=== PATIENT | male | born 1960 | race Caucasian/White ===

== ENCOUNTER 2018-04-09 07:22 | Inpatient (IN) ==
--- NOTE | 2018-04-09 08:22 | XRay Report ---
SINGLE VIEW CHEST CLINICAL HISTORY: Generalized weakness. FINDINGS: 2 AP, portable, upright chest radiographs are obtained. No prior studies are available for comparison at the time of dictation. The examination is degraded by portable technique and apical marah dotic positioning. The heart is markedly enlarged and there is atherosclerotic calcification of the thoracic aorta. There is mild pulmonary vascular congestion. Bibasilar atelectasis is noted. No airsp stacey consolidation or large pleural effusion is identified. No pneumothorax is seen. The skeletal stru ctures are osteopenic. The bony thorax is grossly intact. IMPRESSION: Marked cardiomegaly with evidence of pulmonary vascular congestion. Electronically signed by: Obi Miles M.D. 04/09/2018 8:21 AM
[2018-04-09 08:39] LABS: Basophils # (auto) 0.02 K/uL (0-0.2); Basophils % (auto) 0.2 %; Eosinophils # (auto) 0.03 K/uL (0-0.5); Eosinophils % (auto) 0.3 %; Hematocrit (blood only) 46.6 % (42-52); Immature Granulocytes # (auto) 0.03 K/uL (0.00-0.02); Immature Granulocytes % (auto) 0.3 %; Lymphocytes # (auto) 1.36 K/uL (1.2-3.4); Lymphocytes % (auto) 11.7 %; Mean Corpuscular Hgb Conc 32.2 g/dL (32-36); Mean Corpuscular Volume 89.3 fL (80-100); Mean Platelet Volume 11.6 fL (7.4-10.4); Monocytes # (auto) 1.12 K/uL (0.11-0.59); Monocytes % (auto) 9.7 %; Neutrophils # (auto) 9.02 K/uL (1.4-6.5); Neutrophils % (auto) 77.8 %; Platelet Count 167 K/uL (130-400); RDW Coefficient of Variation 15.7 % (11.5-14.5); RDW Standard Deviation 50.9 fL (36.4-46.3); Red Blood Count 5.22 M/uL (4.7-6.1); White Blood Count 11.58 K/uL (4.8-10.8)
[2018-04-09 08:50] LABS: Albumin Level 3.2 gm/dl (3.4-5.0); BUN Creatinine Ratio 16.5 (10-20); Blood Urea Nitrogen 17 mg/dl (7-18); Calcium 8.8 mg/dl (8.5-10.1); Carbon Dioxide 27 mmol/L (21-32); Chloride 102 mmol/L (98-107); Est GFR (African American) 90.7; Est GFR (Non-African American) 78.2; Glucose 100 mg/dl (70-99); Magnesium 2.2 mg/dl (1.8-2.4); Potassium 3.7 mmol/L (3.5-5.1); Sodium 139 mmol/L (136-145)
[2018-04-09 09:02] LABS: Alanine Aminotransferase 42 U/L (12-78); Albumin Globulin Ratio 1.1 (0.9-2); Alkaline Phosphatase 126 U/L (45-117); Aspartate Aminotransferase 27 U/L (15-37); Bilirubin,Total 2.6 mg/dl (0.1-1); Globulin 2.8 gm/dl (2.5-4.0); NT Pro B Type Natriuretic Pept 4883 pg/ml (0-900); Troponin I 0.051 ng/ml (0-0.045)
[2018-04-09 09:13] LABS: Appearance Urine Clear (Clear); Bacteria Urine Automated Negative (Negative); Bilirubin Urine Negative (Negative); Cast Urine Automated 0 /lpf (0-5); Color Urine Yellow; Epithelial Cell Urine Auto 0-5 /lpf (0-5); Glucose Urine UA Negative (Negative); Ketones Urine Negative (Negative); Leukocyte Esterase Urine Negative (Negative); Nitrite Urine Negative (Negative); Protein Urine 1+ (Negative); Specific Gravity Urine 1.009 (1.000-1.030); Urobilinogen Urine Negative (Negative); pH Urine 6.5 (4.5-7.5)
--- NOTE | 2018-04-09 09:38 | CT Scan Report ---
CT OF THE ABDOMEN AND PELVIS WITHOUT CONTRAST CLINICAL HISTORY: Abdominal swelling. Lower extremity swelling. Difficulty urinating. COMPARISON STUDY: No previous studies for comparison. TECHNIQUE: Axial images of the abdomen and pelvis were obtained without IV contrast. Images were revi ewed in the axial, sagittal, and coronal planes. Automated exposure control was utilized for the giles dy. A dose lowering technique was utilized adhering to the principles of ALARA. FINDINGS: Moderate to marked cardiomegaly is noted. Trace right pleural effusion is present. There is generalized anasarca. Moderate abdominal and pelvic ascites is noted. Evaluation of the abdomen and pelvis is suboptimal on this unenhanced exam. In addition, artifact is noted from the body wall conta cting the gantry. No pneumatosis, free air or portal venous gas is present. The size of the spleen is normal. No definite collaterals are identified. There is apparent slight nodularity of the liver wit h heterogeneity. Unenhanced images of the adrenal glands, kidneys and pancreas are normal. No hydrone phrosis. There is colonic diverticulosis without evidence for acute diverticulitis. The appendix is n ormal. Lower extremity edema, left greater than right, is noted. There is scrotal edema. Prominent bi lateral inguinal lymph nodes are probably reactive. No suspicious osseous lesion is noted. No renal, ureteral or bladder calculi are present. IMPRESSION: 1. Evidence for volume lobe with anasarca, moderate ascites and trace right pleural effusion. 2. Suboptimal evaluation given lack of contrast and artifact from body wall contacting the gantry. 3. Heterogeneity of the liver and slight nodularity of the liver surface which raises the possibility of cirrhosis. However, normal size spleen with no definite collaterals identified. 4. No bowel obstruction. Colonic diverticulosis without evidence for acute diverticulitis. Normal candelaria endix. Electronically signed by: Jp Matute M.D. 04/09/2018 9:35 AM
[2018-04-09] MEDS ORDERED: FUROSEMIDE 40 MG/4 ML VIAL IV STA (10:38)
[2018-04-09] MEDS ORDERED: NITROGLYCERIN 2% OINTMENT 30GM TUBE EXT STA (10:38)
--- NOTE | 2018-04-09 10:54 | History & Physical Report ---
Date of Service April 09, 2018 Assessment & Plan (1) Acute CHF: 58 y/o M Hx AF, ETOH abuse, medical noncompliance. The pt states that he has had AF for 10 years. He has not seen an MD in this time and has been taking a baby aspirin only. Over the last few months he has developed shortness of breath and progressive edema. He has noted significant scrotal edema as well and has had some difficulty urinating as of late. He is profoundly edematous on arrival to the ER. An EKG confirmed AF while a CXR displayed cardiomegaly and vascular congestion. Inital labs are notable for a marginal troponin and an elevated bilirubin. The pt denies CP, a productive cough, nausea, vomiting, diaphoresis or fevers. 1) CHF - likely owing to persistent AF - Echo is pending - cardio consult requested. Pt will be placed on Lasix BID, Strict I/O, daily weights, low Na diet, fluid restriction. 2) AF - rate is approximately 90 without medications. We will start a low dose of B herber, anticoagulation with Lovenox pending cardio eval. Echo pending. 3) Elevated trop - likely 2/2 CHF - will trend - continue ASA, full dose Lovenox , Echo will evaluate for WMAs. 4) ETOH abuse - denies a history of DTs - placed on PRN Ativan, folate, thiamine. 5) Bilirubin elevation - remainder of LFTs WNL - will eventually need workup - this may be due to passive congestion although we would expect some transaminitis. Will trend LFTs AM 6) Dysuria - owing to scrotal edema - renal function is intact - PRN catheterization while we wait for edema to improve. Full code - Lovenox prophylaxis Total time for this admit including review of labs, meds, imiaging, records - discussion with pt and ER attending - 40 min Present on Admission?: Yes History of Present Illness Chief Complaint: SOB, Anasarca, Scrotal edema, Dysuria Primary Care Provider: NO PCP 58 y/o M Hx AF, ETOH abuse, medical noncompliance. The pt states that he has had AF for 10 years. He has not seen an MD in this time and has been taking a baby aspirin only. Over the last few months he has developed shortness of breath and progressive edema. He has noted significant scrotal edema as well and has had some difficulty urinating as of late. He is profoundly edematous on arrival to the ER. An EKG confirmed AF while a CXR displayed cardiomegaly and vascular congestion. Inital labs are notable for a marginal troponin and an elevated bilirubin. The pt denies CP, a productive cough, nausea, vomiting, diaphoresis or fevers. PMH: Per the pt his PMH is limited to AF and excessive alcohol use Surgical: Denies Social: Quit smoking 10 years ago States he normally drinks several glasses of wine daily. Over the last 2 months he has only had one glass daily due to his condition. He is currently unemployed Family: Father owing to a CVA age 71 Mother due to an MVA Allergies Allergy/AdvReac Type Severity Reaction Status Date / Time No Known Allergies Allergy Unverified 04/09/18 08:10 Home Medications Home Medications Medication Instructions Recorded Confirmed Type ascorbic acid (vitamin C) [Vitamin 250 mg PO QAM 04/09/18 04/09/18 History C] aspirin 81 mg PO QAM 04/09/18 04/09/18 History cholecalciferol (vitamin D3) 5,000 unit PO QAM 04/09/18 04/09/18 History [Vitamin D3] magnesium 500 mg PO QAM 04/09/18 04/09/18 History multivitamin [Multiple Vitamins] 1 tab PO QAM 04/09/18 04/09/18 History omega 3-ufi-apd-fish oil [Fish Oil] 1 cap PO QAM 04/09/18 04/09/18 History vitamin B complex 1 tab PO QAM 04/09/18 04/09/18 History Past Med/Surg History Social History Feels Safe at Home: Yes Smoking Status: Never smoker Review of Systems General: Denies fevers, night sweats, weight loss, weight gain ENT: Denies throat pain, nasal congestion Eyes: Denies acute visual impairment, eye pain Cardiovascular: Denies CP - could not discern palpitations Respiratory: Denies SOB, productive cough, wheezing GI: Denies nausea, vomiting, diarrhea, constipation, GI bleeding : Dysuria related to scrotal edema Neuro: Denies headache, lightheadedness, syncope, unilateral weakness, acute loss of balance, memory loss Endocrine: Denies polydypsia, polyuria Heme: Denies unexplained bruising Skin: Denies acute rash or ulcers Musculoskeletal: Progressive edema extending form abdomen downward Physical Exam 2 Vital Signs (Past 24 Hours): Last Vital Signs Temp 36.8 C 04/09/18 10:33 Pulse 91 H 04/09/18 10:33 Resp 20 04/09/18 10:33 BP 146/106 H 04/09/18 10:33 Pulse Ox 98 04/09/18 10:33 Physical Exam: General: Overweight, midddle-aged male - appears edematous, AAO x 3, no distress - mild dyspnea noted ENT: No erythema or exudates, no thrush Eyes: MARIA LUISA, EOMI Head and neck: Normocephalic, atruamatic - cannot evaluate JVD due to habitus Chest/heart: Nontender, S1,2, irregular Lungs: CTAB, no wheezing or crackles Abdomen: Nontender, edematous - pitting in lower abdomen Neuro: AAO x 3, speech is clear, no unilateral weakness or loss of sensation, coordination intact Musculoskeletal: No joint inflammation, muscle tenderness, FROM - edema extends form abdomen downward : Scrotal edema is present Skin: No acute rashes or ulcers Extremities: 3+ BL edema Results & Data Diagnostic Findings CXR: Marked cardiomegaly with evidence of pulmonary vascular congestion. EKG: AF - no evidence of acute ischemia - rate < 100 _ (1) Acute CHF Heart failure type: unspecified Qualified Code(s): I50.9 - Heart failure, unspecified
[2018-04-09] MEDS ORDERED: ALUMINUM/MAGNESIUM SUSP 30 ML UDC PO PRN (12:38)
[2018-04-09] MEDS ORDERED: ACETAMINOPHEN 325 MG TAB PO PRN (12:38)
[2018-04-09] MEDS ORDERED: NITROGLYCERIN 2% OINTMENT 30GM TUBE EXT SCH (12:38)
[2018-04-09] MEDS ORDERED: MAGNESIUM HYDROXIDE SUSP 30 ML UDC PO PRN (12:38)
[2018-04-09] MEDS ORDERED: LORazepam 1 MG/2 ML VIAL IV PRN (12:38)
[2018-04-09] MEDS ORDERED: ZOLPIDEM TARTRATE 5 MG TAB PO PRN (12:38)
[2018-04-09] MEDS ORDERED: ONDANSETRON INJ 2 MG/ML 2 ML VIAL IV PRN (12:38)
[2018-04-09] MEDS ORDERED: POLYETHYLENE (MIRALAX) 17 GM PACK PO PRN (12:38)
[2018-04-09] MEDS ORDERED: THIAMINE HCL 100 MG TAB PO ONE (12:38)
[2018-04-09] MEDS ORDERED: FOLIC ACID 1 MG TAB PO ONE (12:38)
--- NOTE | 2018-04-09 14:50 | Cardiology Consultation ---
Date of Consultation April 09, 2018 Assessment & Plan (1) Atrial fibrillation: From his history I cannot tell how long he has been in atrial fibrillation , he does have a long history of it going back at least 10 years but I cannot tell if it is permanent or paroxysmal from his description. I also cannot tell if it has been uncontrolled for that long or not, but he is not on medications. I think he should be on at least low doses of rate control medications and he should be on an anticoagulant at this point, rather than aspirin. Currently he is just on aspirin. I do not think we are going to want to do invasive evaluation at this time (certainly not tomorrow, which is right before the weekend and before the [place] holidays) therefore I think we should start him on anticoagulation, I think we can use 1 of the newer agents spite his mildly elevated liver function tests. (2) Cardiomyopathy: Based on his echocardiogram he has significant left ventricular dysfunction although I do not have a measurement at this time. This may be rate related from his atrial fibrillation or he may have some other cause of cardiomyopathy. Based on his electrocardiogram it is probably not ischemic and he does not have symptoms compatible with coronary artery disease. I do not think we need catheterization now, although we may want to do that in the future depending on how he responds to medications. I am going to start him on low-dose beta blockade (carvedilol) which will help with rate control and his cardiomyopathy. (3) Acute CHF: He presents in what he describes is recent onset of congestive heart failure, perhaps a month or 2, although it is conceivable it has been going on for longer than that and then he became aware of it more recently. Since he has not been seeing physicians I do not know that we can become more accurate in the time sequence. The cause of his heart failure is almost certainly left ventricular dysfunction, hopefully from uncontrolled heart rate which may correct. I agree with diuresis. (4) Elevated troponin: His initial troponin was slightly elevated and then it dropped somewhat, I think this is consistent with demand ischemia from congestive heart failure not an ischemic event. Although we may want to consider catheterization in the future for diagnosis of his cardiomyopathy I do not think there is an urgent need for evaluation at this time. History of Present Illness Reason for Consultation: Atrial fibrillation, CHF Attending Physician: Santosh Wilson MD History of Present Illness This is a 58-year-old gentleman with a history of ethanol abuse who has lived in this area for about 5 years, however before that lived in [place] and had seen a court stenographer there for atrial fibrillation and had a cardioversion. I do not have any details and he is not a very clear historian. It sounds as though he had a cardioversion but no other treatment for his arrhythmia other than medications, he discontinued his medications years ago and is not seen a physician for many years. He has been taking aspirin daily. He does not seem very aware of his atrial fibrillation, he tells me that once in a while he thought he might be in it, but he is unclear as to whether he was in it permanently or whether was paroxysmal. Over the last month or so he has noticed a significant increase in his weight as well as leg and abdominal swelling and increasing dyspnea on exertion. He has not been having chest discomfort, he has orthopnea recently. He does not generally have much of an awareness of his heartbeat. Who presented to the emergency room and was noted to be in heart failure and to be in atrial fibrillation with a rapid heart rate. He was therefore admitted. At the time of my evaluation he was resting in bed, he was not having shortness of breath at rest and is not been having chest discomfort or palpitations. Allergies Allergy/AdvReac Type Severity Reaction Status Date / Time No Known Allergies Allergy Unverified 04/09/18 08:10 Home Medications Home Medications Medication Instructions Recorded Confirmed Type ascorbic acid (vitamin C) [Vitamin 250 mg PO QAM 04/09/18 04/09/18 History C] aspirin 81 mg PO QAM 04/09/18 04/09/18 History cholecalciferol (vitamin D3) 5,000 unit PO QAM 04/09/18 04/09/18 History [Vitamin D3] magnesium 500 mg PO QAM 04/09/18 04/09/18 History multivitamin [Multiple Vitamins] 1 tab PO QAM 04/09/18 04/09/18 History omega 4-lek-mdb-fish oil [Fish Oil] 1 cap PO QAM 04/09/18 04/09/18 History vitamin B complex 1 tab PO QAM 04/09/18 04/09/18 History Patient History Social History Current Living Situation: Alone Current Living Situation Comment: [place] Other Information That Helps Us Care for You: No Feels Safe at Home: Yes Safety Concerns: Feels Safe At This Time Smoking Status: Never smoker Hx Alcohol Use: Yes Alcohol type: wine Alcohol Intake Frequency: 3 or more drinks per day Hx Substance Use: No Beliefs That Will Affect Care: None Preferred Language: Polish Communication Ability: Effective 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 Progressive dyspnea on exertion, no exertional chest pain. Recent orthopnea, no PND, recent worsening of peripheral edema. No GI complaints, no bleeding. No neurologic complaints such as TIA or stroke symptoms. Other systems negative. Physical Exam 2 Vital Signs (Past 24 Hours): Last Vital Signs Temp 36.8 C 04/09/18 10:33 Pulse 91 H 04/09/18 10:33 Resp 20 04/09/18 10:33 BP 146/106 H 04/09/18 10:33 Pulse Ox 98 04/09/18 10:33 Physical Exam: Constitutional: Alert, cooperative and in no distress. He is obese. HEENT: Unremarkable other than very poor dentition Neck: No jugular venous distention, carotid pulses are irregular but otherwise unremarkable and equal bilaterally without bruits. Pulmonary: Decreased breath sounds to auscultation bilaterally. Cardiac: Irregular rhythm with no murmur, gallop or rub. Abdomen: Soft, nontender with normal bowel sounds. Extremities: +3 bilateral pretibial edema, extending up to the abdomen. Distal pulses difficult to feel. Neurologic: No focal findings. Gait is steady. Skin: No rash, ecchymoses or petechiae. Results & Data Diagnostic Findings Telemetry: Atrial fibrillation with a relatively well-controlled heart rate averaging a little less than 100 but at times faster Electrocardiogram: Atrial fibrillation at a rate of 97 bpm, 1 PVC, no acute changes Echocardiogram severe left ventricular dysfunction, formal report pending _ (1) Acute CHF Heart failure type: unspecified Qualified Code(s): I50.9 - Heart failure, unspecified
--- NOTE | 2018-04-09 16:06 | Emergency Department Note ---
Entered by Kalyn Fraser acting as a scribe for Jovany Aj MD ED Provider Note CHIEF COMPLAINT: Scrotal swelling HISTORY OF PRESENT ILLNESS: The patient is a 58 year old male who presents to the Emergency Room with complaints of persistent scrotal swelling beginning 4 days ago. He reports his scrotum is red and has increased warmth, but is not painful. The patient states he has not been able to fully urinate for weeks, and reports he urinates "trickles" of dark yellow urine multiple times throughout the day. He denies blood or pain with urination. The patient reports dyspnea on exertion, and states he is unable to cross a room without stopping to take a breath. He notes these symptoms began around 2 months ago, when he began retaining fluid. The patient reports he has had abdominal and bilateral lower extremity swelling over the past couple months. He notes constipation, lack of appetite, and intermittent itchiness. The patient denies racing heart rate, chest pain, palpitations, fevers, chills, sweats, orthopnea, nocturnal dyspnea, headache, rash, LOC, numbness, tingling, weakness, or blood in his stools. He notes a history of Afib, and he is not currently on blood thinners. REVIEW OF SYSTEMS: See HPI for pertinent positives and negatives. A total of ten systems were reviewed and were otherwise negative. PMHx/PSHx: Afib. Hx cardioversion (~2007). SOCIAL HISTORY: Patient lives at home. PHYSICAL EXAM: GENERAL: Awake, alert, mildly uncomfortable-appearing, in no distress HENT: Normocephalic, atraumatic. Oropharynx unremarkable. EYES: Normal conjunctiva. Sclera non-icteric. NECK: Inspection normal. Non-tender. Supple. No nuchal rigidity. FROM. No masses. RESPIRATORY: Clear to auscultation. No wheezes. No rales. Normal respiratory effort. CARDIAC: Tachycardic rate. Irregular rhythm. No murmurs. No rubs. Extremities warm and well perfused. Pulses equal. No JVD. GI: Significantly distended. No tenderness to palpation. No rebound or guarding. No masses. RECTAL: Deferred. MUSCULOSKELETAL: Atraumatic. Chest examination reveals no tenderness. The back is symmetrical on inspection without obvious abnormality. There is no CVA tenderness to palpation. LOWER EXTREMITIES: Calves are equal size bilaterally and non-tender. No discoloration. NEURO: Normal sensorium. No sensory or motor deficits noted. SKIN: No rash or jaundice noted. 3+ pitting edema in lower extremities, scrotum , penis, and abdomen. EMERGENCY DEPARTMENT COURSE: 0743: Past medical records reviewed. The patient was evaluated in room A10 by Marty Palacio, the medical student under my direction. 0815: I evaluated the patient in room A10, and a complete history and physical examination were performed. 1045: I reviewed the patient's case with Dr. Wilson, [facility] hospitalist. He will evaluate the patient for further management. MEDICAL DECISION MAKING: Triage Nursing notes reviewed and agree them. The patient's history was concerning for swelling in the abdomen, groin, and legs Differential diagnosis: Etiologies such as CHF, DVT, joint effusion, infection, trauma, muscular, lymphedema, idiopathic,, as well as others were entertained. Physical examination: The physical examination revealed no signs of infection. Neurovascularly intact. The patient had anasarca. ER treatment provided: IV Lasix Nitropaste On reassessment the patient felt better. Diagnostics interpreted by me: The labs revealed an unremarkable CBC and chemistry panel. No sign of renal failure. The patient has a mildly elevated troponin. His BNP is also elevated concerning for CHF. Imaging studies: Chest x-ray concerning for CHF. CT scan of the abdomen pelvis revealed anasarca. Consultation: A consultation was placed with the hospitalist. The case was discussed and diagnostics were reviewed. The patient was evaluated in the ER for further treatment. IMPRESSION: Acute CHF, anasarca, elevated troponin. PLAN: Admitted The scribe's documentation has been prepared under my direction and personally reviewed by me in its entirety. I confirm that the note above accurately reflects all work, treatment, procedures, and medical decision making performed by me. Impression & Plan Acute CHF, Anasarca, Elevated troponin Past Med/Surg History Social History Current Living Situation: Alone Current Living Situation Comment: [facility] [place] [employer] Other Information That Helps Us Care for You: No Feels Safe at Home: Yes Safety Concerns: Feels Safe At This Time Smoking Status: Never smoker Hx Alcohol Use: Yes Alcohol type: wine Alcohol Intake Frequency: 3 or more drinks per day Hx Substance Use: No Beliefs That Will Affect Care: None Preferred Language: Serbian Communication Ability: Effective Marketing Program Coordinator Required: No Results & Data Vital Signs Vital Signs - 24 hr 04/09/18 07:32 04/09/18 08:16 04/09/18 10:33 Temperature 36.4 C L 36.8 C Temperature Source Oral Oral Sepsis Recent Fever Within 48 Hours No Sepsis New/Unexplained Change in Mental Status No Sepsis Action Taken by Nursing No Action Required Pulse Rate 110 H Pulse Rate [Left] 91 H Pulse Rhythm [Left] Regular Pulse Strength [Left] Normal Respiratory Rate 28 H 20 Respiratory Effort / Characteristics Non-Labored Respiratory Depth Normal Respiratory Pattern Regular Blood Pressure 137/86 Blood Pressure [Left Arm] 146/106 H Blood Pressure Mean 103 Blood Pressure Mean [Left Arm] 119 Blood Pressure Position [Left Arm] Lying Pulse Oximetry 98 95 98 Oxygen Delivery Method Room Air Room Air 04/09/18 11:39 04/09/18 15:28 Temperature 36.4 C L Temperature Source Oral Sepsis Recent Fever Within 48 Hours Sepsis New/Unexplained Change in Mental Status Sepsis Action Taken by Nursing Pulse Rate Pulse Rate [Left] 88 Pulse Rhythm [Left] Pulse Strength [Left] Respiratory Rate 18 Respiratory Effort / Characteristics SOB on Exertion Respiratory Depth Respiratory Pattern Regular Blood Pressure Blood Pressure [Left Arm] 150/102 H Blood Pressure Mean Blood Pressure Mean [Left Arm] 118 Blood Pressure Position [Left Arm] Lying Pulse Oximetry 98 Oxygen Delivery Method Room Air Home Medications Current Medication List: was personally reviewed by me Laboratory Data Attestation: I reviewed the patient's lab results. Result diagrams: 04/09/18 08:26 04/09/18 08:26 Lab Results 04/09/18 04/09/18 04/09/18 Range/Units 08:26 08:26 09:00 WBC 11.58 H (4.8-10.8) K/uL RBC 5.22 (4.7-6.1) M/uL Hgb 15.0 (14.0-18.0) g/dL Hct 46.6 (42-52) % MCV 89.3 (80-100) fL MCH 28.7 (25-34) pg MCHC 32.2 (32-36) g/dL RDW Std Deviation 50.9 H (36.4-46.3) fL RDW Coeff of Reji 15.7 H (11.5-14.5) % Plt Count 167 (130-400) K/uL MPV 11.6 H (7.4-10.4) fL Immature Gran % (Auto) 0.3 % Neut % (Auto) 77.8 % Lymph % (Auto) 11.7 % [place] % (Auto) 9.7 % Eos % (Auto) 0.3 % Baso % (Auto) 0.2 % Immature Gran # (Auto) 0.03 H (0.00-0.02) K/uL Neut # (Auto) 9.02 H (1.4-6.5) K/uL Lymph # (Auto) 1.36 (1.2-3.4) K/uL [place] # (Auto) 1.12 H (0.11-0.59) K/uL Eos # (Auto) 0.03 (0-0.5) K/uL Baso # (Auto) 0.02 (0-0.2) K/uL Sodium 139 (136-145) mmol/L Potassium 3.7 (3.5-5.1) mmol/L Chloride 102 (98-107) mmol/L Carbon Dioxide 27 (21-32) mmol/L Anion Gap 10.0 (3-11) BUN 17 (7-18) mg/dl Creatinine 1.04 (0.6-1.4) mg/dl Est Cr Clr Drug Dosing Not Reportable Est GFR ( Amer) 90.7 Est GFR (Non-Af Amer) 78.2 BUN/Creatinine Ratio 16.5 (10-20) Glucose 100 H (70-99) mg/dl Calcium 8.8 (8.5-10.1) mg/dl Magnesium 2.2 (1.8-2.4) mg/dl Total Bilirubin 2.6 H (0.1-1) mg/dl AST 27 (15-37) U/L ALT 42 (12-78) U/L Alkaline Phosphatase 126 H (45-117) U/L Troponin I 0.051 H* (0-0.045) ng/ml NT-Pro-B Natriuret Pep 4883 H (0-900) pg/ml Total Protein 6.0 L (6.4-8.2) gm/dl Albumin 3.2 L (3.4-5.0) gm/dl Globulin 2.8 (2.5-4.0) gm/dl Albumin/Globulin Ratio 1.1 (0.9-2) Folate (>5.38) ng/ml TSH 1.900 (0.300-4.500) uIu/ml Urine Color Yellow Urine Appearance Clear (Clear) Urine pH 6.5 (4.5-7.5) Ur Specific [place] 1.009 (1.000-1.030) Urine Protein 1+ H (Negative) Urine Glucose (UA) Negative (Negative) Urine Ketones Negative (Negative) Urine Blood Negative (Negative) Urine Nitrite Negative (Negative) Urine Bilirubin Negative (Negative) Urine Urobilinogen Negative (Negative) Ur Leukocyte Esterase Negative (Negative) Urine WBC (Auto) 1-5 (0-5) /hpf Urine RBC (Auto) 0-4 (0-4) /hpf U Hyaline Cast (Auto) 0 (0-5) /lpf U Epithel Cells (Auto) 0-5 (0-5) /lpf Urine Bacteria (Auto) Negative (Negative) 04/09/18 04/09/18 Range/Units 13:55 13:55 WBC (4.8-10.8) K/uL RBC (4.7-6.1) M/uL Hgb (14.0-18.0) g/dL Hct (42-52) % MCV (80-100) fL MCH (25-34) pg MCHC (32-36) g/dL RDW Std Deviation (36.4-46.3) fL RDW Coeff of Reji (11.5-14.5) % Plt Count (130-400) K/uL MPV (7.4-10.4) fL Immature Gran % (Auto) % Neut % (Auto) % Lymph % (Auto) % [place] % (Auto) % Eos % (Auto) % Baso % (Auto) % Immature Gran # (Auto) (0.00-0.02) K/uL Neut # (Auto) (1.4-6.5) K/uL Lymph # (Auto) (1.2-3.4) K/uL [place] # (Auto) (0.11-0.59) K/uL Eos # (Auto) (0-0.5) K/uL Baso # (Auto) (0-0.2) K/uL Sodium (136-145) mmol/L Potassium (3.5-5.1) mmol/L Chloride (98-107) mmol/L Carbon Dioxide (21-32) mmol/L Anion Gap (3-11) BUN (7-18) mg/dl Creatinine (0.6-1.4) mg/dl Est Cr Clr Drug Dosing Est GFR ( Amer) Est GFR (Non-Af Amer) BUN/Creatinine Ratio (10-20) Glucose (70-99) mg/dl Calcium (8.5-10.1) mg/dl Magnesium (1.8-2.4) mg/dl Total Bilirubin (0.1-1) mg/dl AST (15-37) U/L ALT (12-78) U/L Alkaline Phosphatase (45-117) U/L Troponin I 0.043 (0-0.045) ng/ml NT-Pro-B Natriuret Pep (0-900) pg/ml Total Protein (6.4-8.2) gm/dl Albumin (3.4-5.0) gm/dl Globulin (2.5-4.0) gm/dl Albumin/Globulin Ratio (0.9-2) Folate 20.52 (>5.38) ng/ml TSH (0.300-4.500) uIu/ml Urine Color Urine Appearance (Clear) Urine pH (4.5-7.5) Ur Specific [place] (1.000-1.030) Urine Protein (Negative) Urine Glucose (UA) (Negative) Urine Ketones (Negative) Urine Blood (Negative) Urine Nitrite (Negative) Urine Bilirubin (Negative) Urine Urobilinogen (Negative) Ur Leukocyte Esterase (Negative) Urine WBC (Auto) (0-5) /hpf Urine RBC (Auto) (0-4) /hpf U Hyaline Cast (Auto) (0-5) /lpf U Epithel Cells (Auto) (0-5) /lpf Urine Bacteria (Auto) (Negative) Administered Medications Discontinued Medications Folic Acid (Folvite) 1 mg PO ONCE ONE Stop: 04/09/18 12:39 Last Admin: 04/09/18 13:14 Dose: 1 mg Furosemide (Lasix) 20 mg IV NOW STA Stop: 04/09/18 10:39 Last Admin: 04/09/18 11:04 Dose: 20 mg Nitroglycerin (Nitro-Bid 2%) 0.5 inch EXT NOW STA Stop: 04/09/18 10:39 Last Admin: 04/09/18 11:05 Dose: 0.5 inch Thiamine HCl (Vitamin B-1) 100 mg PO ONCE ONE Stop: 04/09/18 12:39 Last Admin: 04/09/18 13:14 Dose: 100 mg Imaging Data Radiologist's Impression: Radiology results as stated below per my review and the radiologist's interpretation: CT OF THE ABDOMEN AND PELVIS WITHOUT CONTRAST CLINICAL HISTORY: Abdominal swelling. Lower extremity swelling. Difficulty urinating. COMPARISON STUDY: No previous studies for comparison. TECHNIQUE: Axial images of the abdomen and pelvis were obtained without IV contrast. Images were reviewed in the axial, sagittal, and coronal planes. Automated exposure control was utilized for the study. A dose lowering technique was utilized adhering to the principles of ALARA. FINDINGS: Moderate to marked cardiomegaly is noted. Trace right pleural effusion is present. There is generalized anasarca. Moderate abdominal and pelvic ascites is noted. Evaluation of the abdomen and pelvis is suboptimal on this unenhanced exam. In addition, artifact is noted from the body wall contacting the gantry. No pneumatosis, free air or portal venous gas is present. The size of the spleen is normal. No definite collaterals are identified. There is apparent slight nodularity of the liver with heterogeneity. Unenhanced images of the adrenal glands, kidneys and pancreas are normal. No hydronephrosis. There is colonic diverticulosis without evidence for acute diverticulitis. The appendix is normal. Lower extremity edema, left greater than right, is noted. There is scrotal edema. Prominent bilateral inguinal lymph nodes are probably reactive. No suspicious osseous lesion is noted. No renal, ureteral or bladder calculi are present. IMPRESSION: 1. Evidence for volume lobe with anasarca, moderate ascites and trace right pleural effusion. 2. Suboptimal evaluation given lack of contrast and artifact from body wall contacting the gantry. 3. Heterogeneity of the liver and slight nodularity of the liver surface which raises the possibility of cirrhosis. However, normal size spleen with no definite collaterals identified. 4. No bowel obstruction. Colonic diverticulosis without evidence for acute diverticulitis. Normal appendix. Electronically signed by: Jp Matute M.D. 04/09/2018 9:35 AM SINGLE VIEW CHEST CLINICAL HISTORY: Generalized weakness. FINDINGS: 2 AP, portable, upright chest radiographs are obtained. No prior studies are available for comparison at the time of dictation. The examination is degraded by portable technique and apical lordotic positioning. The heart is markedly enlarged and there is atherosclerotic calcification of the thoracic aorta. There is mild pulmonary vascular congestion. Bibasilar atelectasis is noted. No airspace consolidation or large pleural effusion is identified. No pneumothorax is seen. The skeletal structures are osteopenic. The bony thorax is grossly intact. IMPRESSION: Marked cardiomegaly with evidence of pulmonary vascular congestion. Electronically signed by: Obi Miles M.D. 04/09/2018 8:21 AM ECG Data Attestation: I personally reviewed and interpreted this ECG as follows: Indication: SOB/dyspnea Rate (beats per minute): 97 Rhythm: atrial fibrillation Findings: + other (nonspecific intraventricular conduction delay ), + nonspecific-ST abn and + PVC; no ST elevation Blood Pressure Blood Pressure Findings: Elevated blood pressure Blood Pressure Disposition: further management by hospitalist Discharge Plan Visit Data *Final* Discharge Date/Time: 04/09/18 12:20 Chief Complaint: Swelling/Edema to Extremity Stated Complaint: SWELLING FEET, ABD, NO BOWEL MOVEMENT ED Provider: Jovany Aj Discharge Problem: Acute CHF, Anasarca, Elevated troponin Patient Disposition: Admitted As Inpatient Discharge Instructions Interventions: ED Discharge Assessment Last Done: 04/09/18 12:20 The scribe's documentation has been prepared under my direction and personally reviewed by me in its entirety. I confirm that the note above accurately reflects all work, treatment, procedures, and medical decision making performed by me.
[2018-04-09] MEDS ORDERED: Heparin IV Standard *NO* Bolus SCH (19:00)
[2018-04-09] MEDS ORDERED: HEPARIN STANDARD DEXTROSE 25,000 UNITS/500 ML IV SCH (19:25)
[2018-04-09] MEDS: APIXABAN 5 MG TABLET PO SCH (20:26)
[2018-04-09] MEDS: CARVEDILOL 3.125 MG TAB PO SCH (20:26)
[2018-04-10 06:31] LABS: Basophils # (auto) 0.03 K/uL (0-0.2); Basophils % (auto) 0.3 %; Eosinophils # (auto) 0.23 K/uL (0-0.5); Eosinophils % (auto) 2.3 %; Hematocrit (blood only) 46.8 % (42-52); Hemoglobin 14.8 g/dL (14.0-18.0); Immature Granulocytes # (auto) 0.02 K/uL (0.00-0.02); Immature Granulocytes % (auto) 0.2 %; Lymphocytes # (auto) 1.77 K/uL (1.2-3.4); Lymphocytes % (auto) 17.7 %; Mean Corpuscular Hgb Conc 31.6 g/dL (32-36); Mean Corpuscular Volume 89.1 fL (80-100); Mean Platelet Volume 11.2 fL (7.4-10.4); Monocytes # (auto) 1.02 K/uL (0.11-0.59); Monocytes % (auto) 10.2 %; Neutrophils # (auto) 6.93 K/uL (1.4-6.5); Neutrophils % (auto) 69.3 %; Platelet Count 179 K/uL (130-400); RDW Coefficient of Variation 15.9 % (11.5-14.5); RDW Standard Deviation 51.5 fL (36.4-46.3); Red Blood Count 5.25 M/uL (4.7-6.1)
[2018-04-10 06:58] LABS: Potassium 3.5 mmol/L (3.5-5.1)
[2018-04-10 06:59] LABS: Albumin Level 3.2 gm/dl (3.4-5.0); BUN Creatinine Ratio 14.6 (10-20); Calcium 8.9 mg/dl (8.5-10.1); Creatinine Clr Calc Pharmacy 104.6 ml/min; Est GFR (African American) 80.3; Est GFR (Non-African American) 69.3; Magnesium 2.2 mg/dl (1.8-2.4)
[2018-04-10 07:02] LABS: Bilirubin,Total 2.6 mg/dl (0.1-1); Total Protein 6.2 gm/dl (6.4-8.2)
[2018-04-10] MEDS: CARVEDILOL 3.125 MG TAB PO SCH (07:43)
[2018-04-10] MEDS: MAGNESIUM OXIDE 400 MG TAB PO SCH (07:43)
[2018-04-10] MEDS: APIXABAN 5 MG TABLET PO SCH ×2 (07:43→20:30)
--- NOTE | 2018-04-10 07:52 | Hospitalist Progress Note ---
Date of Service April 10, 2018 Assessment & Plan (1) Acute CHF: 58 y/o M Hx AF, ETOH abuse, medical noncompliance. The pt states that he has had AF for 10 years. Had been cardioverted in the distant past for afib but is didnt stay according to him. He has significant scrotal edema as well as penile edema. 1) acute diastolic CHF - likely owing to persistent AF - Echo also shows systolic dysfunction- cardio consult recommends rate control increased diuresis and starting anticoagulation, Strict I/O, daily weights, low Na diet, fluid restriction. 2) AF -B herber, but did have some pauses, cardiology is slowly increasing dose 3) Elevated trop - likely supply demand mismatch- continue ASA, 4) ETOH abuse - denies a history of DTs - placed on PRN Ativan, folate, thiamine. 5) Bilirubin elevation - remainder of LFTs WNL -likely hepatic venous congestion 6) Dysuria - owing to scrotal edema - renal function is intact - PRN catheterization (7) may need work up for sleep apnea (2) Atrial fibrillation: (3) Elevated troponin: Subjective pt over all feels improved but still with significant swelling in his scrotum and penis along with legs. He has no chest pain or increased shortness of breath except mild with ambulation Constitutional: + fatigue and + weakness Respiratory: no cough, no chest congestion and no dyspnea Cardiovascular: + dyspnea on exertion; no chest pain and no dyspnea at rest Gastrointestinal: no abdominal pain, no nausea and no vomiting Musculoskeletal: no joint pain and no swelling Integumentary: no rash and no lesions Physical Exam 2 Vital Signs (Past 24 Hours): Last Vital Signs Temp 36.9 C 04/10/18 04:14 Pulse 79 04/10/18 04:14 Resp 21 04/10/18 04:14 BP 117/97 04/10/18 04:14 Pulse Ox 98 04/10/18 04:14 Constitutional: well developed and average body habitus Eyes: no conjunctival abnormality and no scleral abnormality Neck: normal visual inspection and trachea midline Respiratory: normal respiratory effort; no respiratory distress Auscultation: lungs clear to auscultation bilaterally Cardiovascular: Rate/Rhythm: + tachycardic; + abnormal rhythm Extremities: + edema Gastrointestinal (Abdomen): normal bowel sounds, soft, nontender, no hepatosplenomegaly Musculoskeletal: no cyanosis or clubbing, extremities motor strength 5/5 Genitourinary: + edematous penis and + edematous scrotum _ (1) Acute CHF Heart failure type: unspecified Qualified Code(s): I50.9 - Heart failure, unspecified
[2018-04-10] MEDS: FUROSEMIDE 40 MG in SYRINGE 0 ML IV SCH ×2 (08:26→20:30)
[2018-04-10] MEDS ORDERED: ASPIRIN 81 MG CHEW PO SCH (09:00)
[2018-04-10] MEDS: MULTIVITAMIN TAB PO SCH (10:27)
--- NOTE | 2018-04-10 14:30 | Cardiology Progress Note ---
Date of Service April 10, 2018 Assessment & Plan (1) Atrial fibrillation: From his history I cannot tell how long he has been in atrial fibrillation , he does have a long history of it going back at least 10 years but I cannot tell if it is permanent or paroxysmal from his description. I also cannot tell if it has been uncontrolled for that long or not, but he is not on medications although historically he evidently was. I think he should be on at least low doses of rate control medications and he should be on an anticoagulant at this point, rather than aspirin. He is now on Eliquis. (2) Cardiomyopathy: Based on his echocardiogram he has significant left ventricular dysfunction. It may be long-standing as he tells me that he had a cardiomyopathy in the past. This may be rate related from his atrial fibrillation or he may have some other cause of cardiomyopathy. Based on his electrocardiogram it is probably not ischemic and he does not have symptoms compatible with coronary artery disease. I do not think we need catheterization now, although we may want to do that in the future depending on how he responds to medications. I am going to go up on beta blockade ( carvedilol) which will help with rate control and his cardiomyopathy. (3) Acute CHF: He presents in what he describes is recent onset of congestive heart failure, perhaps a month or 2, although it is conceivable it has been going on for longer than that and then he became aware of it more recently. Since he has not been seeing physicians I do not know that we can become more accurate in the time sequence. The cause of his heart failure is almost certainly left ventricular dysfunction, hopefully from uncontrolled heart rate which may correct. I agree with ongoing diuresis. (4) Elevated troponin: His initial troponin was slightly elevated and then it dropped somewhat, I think this is consistent with demand ischemia from congestive heart failure not an ischemic event. Although we may want to consider catheterization in the future for diagnosis of his cardiomyopathy I do not think there is an urgent need for evaluation at this time. Subjective He is feeling better today, he notes ongoing edema but is not as short of breath and is not of chest discomfort and is not aware of his iliac rhythm. Physical Exam 2 Vital Signs (Past 24 Hours): Last Vital Signs Temp 36.5 C 04/10/18 11:04 Pulse 84 04/10/18 11:04 Resp 18 04/10/18 11:04 BP 133/93 04/10/18 11:04 Pulse Ox 97 04/10/18 11:04 Physical Exam: Constitutional: Alert, cooperative and in no distress. Pulmonary: Clear to auscultation bilaterally. Cardiac: Irregular rhythm with no murmur, gallop or rub. Abdomen: Soft, nontender with normal bowel sounds. Extremities: +3 bilateral pretibial edema. Skin: No rash, ecchymoses or petechiae. Results & Data Diagnostic Findings His echocardiogram done April 09, 2018 shows moderate left ventricular dilatation, moderate left ventricular hypertrophy, moderate to severe left ventricular dysfunction ejection fraction of 25-30% with global hypokinesis. The atria are severely dilated and there is moderate mitral regurgitation. Telemetry: Atrial fibrillation, heart rate is still somewhat elevated during the daytime but at night was averaging around 90 bpm _ (1) Acute CHF Heart failure type: unspecified Qualified Code(s): I50.9 - Heart failure, unspecified
[2018-04-10] MEDS: CARVEDILOL 6.25 MG TAB PO SCH (21:35)
[2018-04-11] MEDS: APIXABAN 5 MG TABLET PO SCH ×2 (07:48→19:53)
[2018-04-11] MEDS: MAGNESIUM OXIDE 400 MG TAB PO SCH (07:49)
[2018-04-11] MEDS: MULTIVITAMIN TAB PO SCH (07:49)
[2018-04-11] MEDS: CARVEDILOL 6.25 MG TAB PO SCH ×2 (07:49→19:53)
[2018-04-11] MEDS ORDERED: FUROSEMIDE 40 MG/4 ML VIAL IV ONE (07:52)
[2018-04-11] MEDS: FUROSEMIDE 40 MG in SYRINGE 0 ML IV SCH ×2 (07:53→19:53)
--- NOTE | 2018-04-11 15:12 | Cardiology Progress Note ---
Date of Service April 11, 2018 Assessment & Plan (1) Acute on chronic systolic CHF (congestive heart failure): He is significantly hypervolemic and will likely take several days to diuresed sufficiently. Continue current dosing as he is diuresing quite well. Monitor electrolytes and renal function closely. We discussed importance of a low-sodium diet, less than 2000 mg daily. Strict I&Os. Daily weights. Continue carvedilol. Initiate Entresto. (2) Cardiomyopathy: Etiology uncertain but possibly tachycardia induced. Further evaluation can be later decided in the future, when his heart failure/volume status improved. (3) Atrial fibrillation: Heart rate is adequately controlled today. Continue current dose of beta- herber. Monitor for worsening pauses or bradycardia. There is concern from Dr. Ortez that perhaps sleep apnea is playing a role in his pauses at night. Monitor closely. Consider sleep study. Continue anticoagulation for stroke risk reduction. (4) Mitral regurgitation: Non severe but reported as moderate. This could be secondary to hypervolemia. This can be re-evaluated in the future. Continue to monitor. Disposition: Cardiology will continue to follow. He will likely require several more days of intravenous diuretic therapy. Patient care communicated with primary hospitalist, Dr. Morris. Subjective Breathing has improved but not yet back to baseline. He reports dyspnea with exertion but denies orthopnea. He denies chest pain, palpitations, syncope, near-syncope, or bleeding. He continues to have significant edema, including scrotal edema. He is urinating often. Review of systems: As above. Physical Exam 2 Vital Signs (Past 24 Hours): Last Vital Signs Temp 36.9 C 04/11/18 12:33 Pulse 84 04/11/18 12:33 Resp 18 04/11/18 12:33 BP 123/78 04/11/18 12:33 Pulse Ox 93 04/11/18 12:33 Intake & Output 04/09/18 04/10/18 04/11/18 04/12/18 06:59 06:59 06:59 06:59 Intake Total 340 / 340 580 / 580 480 / 480 Output Total 2250 / 2250 7020 / 7020 3550 / 3550 Balance -1910 / -1910 -6440 / -6440 -3070 / -3070 Weight 151 kg 145.6 kg Physical Exam: Gen.: No acute distress. Alert and oriented. HEENT: Anicteric sclera. Neck: Elevated JVD skilled nursing to the mandible. Cardiac: Irregularly irregular. Normal S1-S2. 1/6 holosystolic murmur best heard at the apex. No rubs, or gallops. Pulmonary: Clear to auscultation bilaterally without wheezes, rales, or rhonchi. Abdomen: Soft, nontender, nondistended, with normoactive bowel sounds. No bruits noted. Trace to 1+ body wall edema. Extremities: 2+ radial pulses bilaterally. 2+ posterior tibialis pulses bilaterally. 2+ bilateral lower extremity edema below the knees. 1+ bilateral lower extremity edema above the knees extending to the hips. No cyanosis. Psychiatric: Affect appears appropriate. Results & Data Laboratory Results Laboratory Results - last 48 hr 04/10/18 04/10/18 06:17 06:17 WBC 10.00 RBC 5.25 Hgb 14.8 Hct 46.8 MCV 89.1 MCH 28.2 MCHC 31.6 L RDW Std Deviation 51.5 H RDW Coeff of Reji 15.9 H Plt Count 179 MPV 11.2 H Immature Gran % (Auto) 0.2 Neut % (Auto) 69.3 Lymph % (Auto) 17.7 [place] % (Auto) 10.2 Eos % (Auto) 2.3 Baso % (Auto) 0.3 Immature Gran # (Auto) 0.02 Neut # (Auto) 6.93 H Lymph # (Auto) 1.77 [place] # (Auto) 1.02 H Eos # (Auto) 0.23 Baso # (Auto) 0.03 Sodium 141 Potassium 3.5 Chloride 104 Carbon Dioxide 29 Anion Gap 8.0 BUN 17 Creatinine 1.15 Est Cr Clr Drug Dosing 104.6 Est GFR ( Amer) 80.3 Est GFR (Non-Af Amer) 69.3 BUN/Creatinine Ratio 14.6 Glucose 93 Calcium 8.9 Magnesium 2.2 Total Bilirubin 2.6 H Direct Bilirubin 1.0 H AST 26 ALT 38 Alkaline Phosphatase 124 H Total Protein 6.2 L Albumin 3.2 L Triglycerides 68 Cholesterol 134 LDL Cholesterol, Calc 78 VLDL Cholesterol, Calc 14 HDL Cholesterol 42 Cholesterol/HDL Ratio 3 Diagnostic Findings Telemetry personally reviewed: Atrial fibrillation. 3.2 second pause. Echo 04/09/2018: Moderately dilated LV with reduced systolic function. EF 25- 30%. Severe biatrial dilation. Moderate MR. RVSP 30-40. Medications Administered Current Inpatient Medications Acetaminophen (Tylenol) 650 mg PO Q4H PRN PRN Reason: Pain or Fever Stop: 05/09/18 12:37 Al Hydrox/Mg Hydrox/Simethicone (Maalox) 15 ml PO Q4H PRN PRN Reason: Dyspepsia Stop: 05/09/18 12:37 Apixaban (Eliquis) 5 mg PO BID [facility] Stop: 05/09/18 20:59 Last Admin: 04/11/18 07:48 Dose: 5 mg Carvedilol (Coreg) 6.25 mg PO BID [facility] Stop: 05/10/18 20:59 Last Admin: 04/11/18 07:49 Dose: 6.25 mg Lorazepam (Ativan) 1 mg in 2 mls @ 2 mls/min IV Q4H PRN PRN Reason: Alcohol Withdrawal Stop: 05/09/18 12:37 Furosemide 40 mg/ Syringe 4 mls @ 4 mls/min IV BID [facility] Stop: 05/10/18 08:59 Last Admin: 04/11/18 07:53 Dose: 4 mls/min Magnesium Hydroxide (Milk Of Magnesia) 30 ml PO Q12H PRN PRN Reason: Constipation Stop: 05/09/18 12:37 Magnesium Oxide (Mag-Ox) 400 mg PO QAM [facility] Stop: 05/10/18 08:59 Last Admin: 04/11/18 07:49 Dose: 400 mg Multivitamins (Multivitamin) 1 tab PO QAM [facility] Stop: 05/10/18 08:59 Last Admin: 04/11/18 07:49 Dose: 1 tab Ondansetron HCl (Zofran) 4 mg IV Q6H PRN PRN Reason: Nausea Stop: 05/09/18 12:37 Polyethylene Glycol (Miralax Powder Packet) 17 gm PO DAILY PRN PRN Reason: Constipation Stop: 05/09/18 12:37 Zolpidem Tartrate (Ambien) 5 mg PO HS PRN PRN Reason: Sleep Stop: 05/09/18 12:37
--- NOTE | 2018-04-11 15:39 | Hospitalist Progress Note ---
Date of Service April 11, 2018 Assessment & Plan (1) Acute CHF: 58 y/o M Hx AF, ETOH abuse, medical noncompliance. The pt states that he has had AF for 10 years. Had been cardioverted in the distant past for afib but is didnt stay according to him. He has significant scrotal edema as well as penile edema. 1) acute diastolic CHF - likely owing to persistent AF Echo also shows systolic dysfunction Cardio following with recs for rate control, increased diuresis, and starting anticoagulation Strict I/O, daily weights, low Na diet, fluid restriction Eliquis, entresto, carvedilol, lasix (2) Atrial fibrillation: B herber, but did have some pauses, cardiology is slowly increasing dose (3) Elevated troponin: likely supply demand mismatch- continue ASA Adding eliquis (4) Dysuria: owing to scrotal edema - renal function is intact - PRN cath UA neg (5) Elevated bilirubin: remainder of LFTs WNL -likely hepatic venous congestion CTAP shows anasarca and moderate ascites ?? cirrhosis Monitor with fluid status changes given hx of EtOH abuse in the past (6) JAYLA (obstructive sleep apnea): No hx of sleep study Concern for this as cause for afib Feeling improved with CPAP Overnight pulse ox Will need formal sleep study as outpt Subjective Pt states he is feeling improved overall. He denies SOB at rest or with ambulation around the room, but feels he would be SOB with increased exertion. Ongoing LE swelling but improved. Feels that the CPAP is helping him sleep. Tolerating PO without issue. Feels his abd swelling is improving also. Pt denies fever, chest pain, abd pain, n/v/c/d, LE pain. Pertinent positives and negatives reviewed in HPI--all others negative Physical Exam 2 Vital Signs (Past 24 Hours): Last Vital Signs Temp 36.7 C 04/11/18 15:26 Pulse 80 04/11/18 15:26 Resp 20 04/11/18 15:26 BP 140/92 04/11/18 15:26 Pulse Ox 97 04/11/18 15:26 Constitutional: WD/WN, vitals as above Eyes: normal visual downing by confrontation and + anicteric sclerae Neck: normal visual inspection and trachea midline Respiratory: normal respiratory effort, lungs clear to auscultation Cardiovascular: Rate/Rhythm: regular rate; + abnormal rhythm Gastrointestinal (Abdomen): Inspection/Auscultation: + abdomen distended Percussion/Palpation: abdomen soft; abdomen nontender Musculoskeletal: Head/Neck/Chest: normocephalic and head atraumatic b/l pitting edema 2+, peripheral pulses intact Skin: no rashes, warm and dry Neurologic: awake; not confused Speech / Cognition: normal speech Psychiatric: A+Ox3, euthymic affect _ (1) Acute CHF Heart failure type: unspecified Qualified Code(s): I50.9 - Heart failure, unspecified
[2018-04-11] MEDS: SACUBITRIL-VALSARTAN 24-26 MG TAB PO SCH (19:53)
[2018-04-12 07:36] LABS: BUN Creatinine Ratio 18.8 (10-20); Calcium 8.5 mg/dl (8.5-10.1); Creatinine Clr Calc Pharmacy 160.1 ml/min; Est GFR (African American) 118.3; Est GFR (Non-African American) 102.1; Potassium 3.1 mmol/L (3.5-5.1)
[2018-04-12] MEDS: MULTIVITAMIN TAB PO SCH (07:37)
[2018-04-12] MEDS: SACUBITRIL-VALSARTAN 24-26 MG TAB PO SCH ×2 (07:37→19:44)
[2018-04-12] MEDS: APIXABAN 5 MG TABLET PO SCH ×2 (07:37→19:44)
[2018-04-12] MEDS: MAGNESIUM OXIDE 400 MG TAB PO SCH (07:37)
[2018-04-12] MEDS: CARVEDILOL 6.25 MG TAB PO SCH ×2 (07:38→19:44)
[2018-04-12] MEDS ORDERED: FUROSEMIDE 40 MG/4 ML VIAL IV ONE (07:40)
[2018-04-12] MEDS: FUROSEMIDE 40 MG in SYRINGE 0 ML IV SCH ×2 (07:44→19:43)
[2018-04-12] MEDS ORDERED: MAGNESIUM HYDROXIDE SUSP 30 ML UDC PO PRN (10:21)
[2018-04-12] MEDS ORDERED: SENNA 8.8 MG/5 ML UDP PO PRN (10:21)
[2018-04-12] MEDS ORDERED: MAGNESIUM HYDROXIDE SUSP 30 ML UDC PO ONE (10:21)
[2018-04-12] MEDS: SENNA 8.6 MG TAB PO SCH (14:36)
--- NOTE | 2018-04-12 14:38 | Hospitalist Progress Note ---
Date of Service April 12, 2018 Assessment & Plan (1) Acute CHF: 58 y/o M Hx AF, ETOH abuse, medical noncompliance. The pt states that he has had AF for 10 years. Had been cardioverted in the distant past for afib. He had significant scrotal edema as well as penile edema on admission. 1) acute diastolic CHF - likely owing to persistent AF Echo also shows systolic dysfunction Cardio following with recs for rate control, increased diuresis, and starting anticoagulation Strict I/O, daily weights, low Na diet, fluid restriction Eliquis, entresto, carvedilol, lasix (2) Atrial fibrillation: B herber, but did have some pauses at one point, cardiology is slowly increasing dose (3) Elevated troponin: likely supply demand mismatch, was on aspirin on admission but d/c'd in favor of eliquis as above (4) Dysuria: owing to scrotal edema - renal function is intact - PRN cath UA neg (5) Elevated bilirubin: remainder of LFTs WNL -likely hepatic venous congestion CTAP shows anasarca and moderate ascites ?? cirrhosis Monitor with fluid status changes given hx of EtOH abuse in the past (6) JAYLA (obstructive sleep apnea): No hx of sleep study Concern for this as cause for afib Feeling improved with CPAP Overnight pulse ox was neg, does not rule out JAYLA Will need formal sleep study as outpt (7) Constipation: No bowel movement since PSYCHIATRIC RN Adding MOM, connie 04/12 (8) Hypokalemia: Likely related to lasix use 40 PO x1 04/12 and start with 20 BID after Subjective Pt states he is again feeling improved. He continues to deny SOB at rest or with ambulation around the room. He has not been walking in the halls though to try more prolonged exertion. LE swelling continues to improve. Tolerating PO without issue. Feels his abd swelling continues to improve. Pt states he has not had a bowel movement since PSYCHIATRIC RN. He denies this as a usual issue for himself. Pt denies fever, chest pain, abd pain, n/v, LE pain. Pertinent positives and negatives reviewed in HPI--all others negative Physical Exam 2 Vital Signs (Past 24 Hours): Last Vital Signs Temp 37.2 C 04/12/18 11:47 Pulse 81 04/12/18 11:47 Resp 18 04/12/18 11:47 BP 120/85 04/12/18 11:47 Pulse Ox 95 04/12/18 11:47 Constitutional: WD/WN, vitals as above Eyes: normal visual downing by confrontation and + anicteric sclerae Neck: normal visual inspection and trachea midline Respiratory: normal respiratory effort, lungs clear to auscultation Cardiovascular: Rate/Rhythm: regular rate; + abnormal rhythm Gastrointestinal (Abdomen): Inspection/Auscultation: + abdomen distended ( improving) Percussion/Palpation: abdomen soft; abdomen nontender Musculoskeletal: Head/Neck/Chest: normocephalic and head atraumatic b/l LE swelling continues to improve but still present around 1+ pitting Skin: no rashes, warm and dry Neurologic: awake; not confused Speech / Cognition: normal speech Psychiatric: A+Ox3, euthymic affect _ (1) Acute CHF Heart failure type: unspecified Qualified Code(s): I50.9 - Heart failure, unspecified
[2018-04-12] MEDS ORDERED: POTASSIUM CHLORIDE 20 MEQ TABCR PO STA (14:41)
--- NOTE | 2018-04-12 15:07 | Cardiology Progress Note ---
Date of Service April 12, 2018 Assessment & Plan (1) Acute on chronic systolic CHF (congestive heart failure): Although improving, he is still significantly hypervolemic. He is diuresing very well. Potassium is being supplemented by primary service. Monitor electrolytes and renal function closely. We have discussed importance of a low-sodium diet, less than 2000 mg daily. Strict I&Os. Daily weights. Continue carvedilol. Entresto was initiated yesterday. This can be titrated in the future. (2) Cardiomyopathy: Etiology uncertain but possibly tachycardia induced. Further evaluation can be later decided in the future, when his heart failure/volume status improved. Continue carvedilol and Entresto. These can be titrated as able. Carvedilol is not being titrated at this time until pauses can be further evaluated by electrophysiology. (3) Atrial fibrillation: Heart rate is adequately controlled today. Continue current dose of beta- herber. Monitor for worsening pauses or bradycardia. Pauses may be secondary to sleep apnea given pulse oximetry findings. Consider CPAP but will defer to primary service. There does not appear to be more significant pauses following recent carvedilol titration by Dr. Ortez. Monitor closely. Continue anticoagulation for stroke risk reduction. (4) Mitral regurgitation: Non severe but reported as moderate. This could be secondary to hypervolemia. This can be re-evaluated in the future. Continue to monitor. Disposition: Dr. Ortez will resume his cardiology care tomorrow when he returns to the hospital. He will likely require several more days of intravenous diuretic therapy. Subjective He denies shortness of breath at rest. He denies orthopnea or PND. He denies chest pain, syncope, near-syncope. He believes that his edema is improving but acknowledges that he is not back to baseline or even close at this point. Nursing staff is noted that when sleeping, he continues to have pauses. Review of systems: As above. Physical Exam 2 Vital Signs (Past 24 Hours): Last Vital Signs Temp 37.2 C 04/12/18 11:47 Pulse 81 04/12/18 11:47 Resp 18 04/12/18 11:47 BP 120/85 04/12/18 11:47 Pulse Ox 95 04/12/18 11:47 Intake & Output 04/10/18 04/11/18 04/12/18 04/13/18 06:59 06:59 06:59 06:59 Intake Total 340 / 340 580 / 580 700 / 700 635 / 635 Output Total 2250 / 2250 7020 / 7020 6400 / 6400 3900 / 3900 Balance -1910 / -1910 -6440 / -6440 -5700 / -5700 -3265 / -3265 Weight 151 kg 145.6 kg 139.7 kg Physical Exam: Gen.: No acute distress. Alert and oriented. HEENT: Anicteric sclera. Neck: Thick neck but appears to have significant JVD. Cardiac: Irregularly irregular. Normal S1-S2. No murmurs, rubs, or gallops. Pulmonary: Clear to auscultation bilaterally without wheezes, rales, or rhonchi. Abdomen: Soft, nontender, nondistended, with normoactive bowel sounds. No bruits noted. Extremities: 2+ bilateral lower extremity edema to the knees with 1+ above the knees. No cyanosis. Psychiatric: Affect appears appropriate. Results & Data Laboratory Results Laboratory Results - last 24 hr 04/12/18 06:21 Sodium 141 Potassium 3.1 L Chloride 103 Carbon Dioxide 33 H Anion Gap 5.0 BUN 13 Creatinine 0.72 Est Cr Clr Drug Dosing 160.1 Est GFR ( Amer) 118.3 Est GFR (Non-Af Amer) 102.1 BUN/Creatinine Ratio 18.8 Glucose 95 Calcium 8.5 Diagnostic Findings Telemetry personally reviewed: Atrial fibrillation. Intermittent pauses up to 5.1 seconds, which occurred at 2:46 a.m.. There were some pauses throughout the day today but they correlated with sleeping according to nursing staff. Nocturnal pulse oximetry results reviewed: There were very frequent events of hypoxia, including 110 events with a pulse oximetry of 80-84%, and 84 events with pulse oximetry of 75-79%. Medications Administered Current Inpatient Medications Acetaminophen (Tylenol) 650 mg PO Q4H PRN PRN Reason: Pain or Fever Stop: 05/09/18 12:37 Al Hydrox/Mg Hydrox/Simethicone (Maalox) 15 ml PO Q4H PRN PRN Reason: Dyspepsia Stop: 05/09/18 12:37 Apixaban (Eliquis) 5 mg PO BID [facility] Stop: 05/09/18 20:59 Last Admin: 04/12/18 07:37 Dose: 5 mg Carvedilol (Coreg) 6.25 mg PO BID [facility] Stop: 05/10/18 20:59 Last Admin: 04/12/18 07:38 Dose: 6.25 mg Lorazepam (Ativan) 1 mg in 2 mls @ 2 mls/min IV Q4H PRN PRN Reason: Alcohol Withdrawal Stop: 05/09/18 12:37 Furosemide 40 mg/ Syringe 4 mls @ 4 mls/min IV BID [facility] Stop: 05/10/18 08:59 Last Admin: 04/12/18 07:44 Dose: 4 mls/min Magnesium Hydroxide (Milk Of Magnesia) 30 ml PO Q6H PRN PRN Reason: Constipation Stop: 05/12/18 10:20 Magnesium Oxide (Mag-Ox) 400 mg PO QAM [facility] Stop: 05/10/18 08:59 Last Admin: 04/12/18 07:37 Dose: 400 mg Multivitamins (Multivitamin) [facility] [place] Stop: 05/10/18 08:59 Last Admin: 04/12/18 07:37 Dose: 1 tab Ondansetron HCl (Zofran) 4 mg IV Q6H PRN PRN Reason: Nausea Stop: 05/09/18 12:37 Polyethylene Glycol (Miralax Powder Packet) 17 gm PO DAILY PRN PRN Reason: Constipation Stop: 05/09/18 12:37 Potassium Chloride (Klor-Con M10) 20 meq PO BID [facility] Stop: 05/12/18 20:59 Sacubitril/Valsartan (Entresto 24/26mg) 1 tab PO BID [facility] Stop: 05/11/18 20:59 Last Admin: 04/12/18 07:37 Dose: 1 tab Sennosides (Senokot) 8.6 mg PO QAM [facility] Stop: 05/12/18 10:29 Last Admin: 04/12/18 14:36 Dose: 8.6 mg Sennosides (Senokot) 8.8 mg PO Q6H PRN PRN Reason: Constipation Stop: 05/12/18 10:20 Zolpidem Tartrate (Ambien) 5 mg PO HS PRN PRN Reason: Sleep Stop: 05/09/18 12:37
[2018-04-12] MEDS: POTASSIUM CHLORIDE 10 MEQ TABCR PO SCH (19:45)
[2018-04-13] MEDS: FUROSEMIDE 40 MG in SYRINGE 0 ML IV SCH ×2 (08:03→20:36)
[2018-04-13] MEDS: POTASSIUM CHLORIDE 10 MEQ TABCR PO SCH ×2 (08:04→20:35)
[2018-04-13] MEDS: SACUBITRIL-VALSARTAN 24-26 MG TAB PO SCH ×2 (08:04→20:34)
[2018-04-13] MEDS: CARVEDILOL 6.25 MG TAB PO SCH (08:04)
[2018-04-13] MEDS: SENNA 8.6 MG TAB PO SCH (08:05)
[2018-04-13] MEDS: APIXABAN 5 MG TABLET PO SCH ×2 (08:05→20:34)
[2018-04-13] MEDS: MAGNESIUM OXIDE 400 MG TAB PO SCH (08:05)
[2018-04-13] MEDS: MULTIVITAMIN TAB PO SCH (08:06)
--- NOTE | 2018-04-13 09:09 | Cardiology Progress Note ---
Date of Service April 13, 2018 Assessment & Plan (1) Atrial fibrillation: From his history I cannot tell how long he has been in atrial fibrillation , he does have a long history of it going back at least 10 years but I cannot tell if it is permanent or paroxysmal from his description, however I suspect permanent. I also cannot tell if it has been uncontrolled for that long or not , but he is not on medications although historically he evidently was. I think he should be on rate control medications and he should be on an anticoagulant at this point, rather than aspirin. He is now on Eliquis. His rate has improved substantially and is now not excessively fast. He did have some pauses of around 5 seconds, but it seemed that that was probably associated with sleep apnea although I do not believe we have proven that as yet. Even with going up on the beta-herber those pauses have not worsened, in fact he did not have any significant pauses last night. I am therefore going to go up on the carvedilol to achieve better rate control. (2) Cardiomyopathy: Based on his echocardiogram he has significant left ventricular dysfunction. It may be long-standing as he tells me that he had a cardiomyopathy in the past, although I think it is certainly worse now. This may be rate related from his atrial fibrillation or he may have some other cause of cardiomyopathy. Based on his electrocardiogram it is probably not ischemic and he does not have symptoms compatible with coronary artery disease. I do not think we need catheterization now, although we may want to do that in the future depending on how he responds to medications. I am going to go up again on beta blockade (carvedilol) which will help with rate control and his cardiomyopathy. I am going to increase him to 12.5 mg twice a day, I will probably not go higher than that at this time and less we need to for rate control but over time will need to further titrate the dose. (3) Acute CHF: He presents in what he describes is recent onset of congestive heart failure, perhaps a month or 2, although it is conceivable it has been going on for longer than that and then he became aware of it more recently. Since he has not been seeing physicians I do not know that we can become more accurate in the time sequence. The cause of his heart failure is almost certainly left ventricular dysfunction, hopefully from uncontrolled heart rate which may correct. He is responding well to diuresis, his renal function is not deteriorating and he still has significant edema. I would recommend continuing with diuresis. Subjective He is feeling considerably better than prior to admission, his edema has resolved significantly although he still has a fair amount of scrotal and leg edema that is bothersome to him. No palpitations or cardiovascular symptoms otherwise. No shortness of breath. Physical Exam 2 Vital Signs (Past 24 Hours): Last Vital Signs Temp 36.5 C 04/13/18 07:08 Pulse 87 04/13/18 07:08 Resp 18 04/13/18 07:08 BP 121/82 04/13/18 07:08 Pulse Ox 97 04/13/18 07:08 Physical Exam: Constitutional: Alert, cooperative and in no distress. Pulmonary: Clear to auscultation bilaterally. Cardiac: Irregular rhythm with no murmur, gallop or rub. Abdomen: Soft, nontender with normal bowel sounds. Extremities: No edema. Skin: No rash, ecchymoses or petechiae. Results & Data Diagnostic Findings Telemetry: Atrial fibrillation throughout, rate somewhat better controlled. No long pauses overnight. _ (1) Acute CHF Heart failure type: unspecified Qualified Code(s): I50.9 - Heart failure, unspecified
--- NOTE | 2018-04-13 13:22 | Hospitalist Progress Note ---
Date of Service April 13, 2018 Assessment & Plan (1) Acute CHF: 58 y/o M Hx AF, ETOH abuse, medical noncompliance. The pt states that he has had AF for 10 years. Had been cardioverted in the distant past for afib. He had significant scrotal edema as well as penile edema on admission. 1) acute diastolic CHF - likely owing to persistent AF Echo also shows systolic dysfunction Cardio following with recs for rate control, increased diuresis, and starting anticoagulation Strict I/O, daily weights, low Na diet, fluid restriction Eliquis, entresto, carvedilol, lasix (2) Atrial fibrillation: B herber, but did have some pauses at one point, cardiology is slowly increasing dose (3) Elevated troponin: likely supply demand mismatch, was on aspirin on admission but d/c'd in favor of eliquis as above (4) Dysuria: owing to scrotal edema - renal function is intact - PRN cath UA neg (5) Elevated bilirubin: remainder of LFTs WNL -likely hepatic venous congestion CTAP shows anasarca and moderate ascites ?? cirrhosis Monitor with fluid status changes given hx of EtOH abuse in the past (6) JAYLA (obstructive sleep apnea): No hx of sleep study Concern for this as cause for afib Feeling improved with CPAP Overnight pulse ox was neg, does not rule out JAYLA Will need formal sleep study as outpt (7) Constipation: No bowel movement since [employer] Ongoing MOM, senna started 04/12 (8) Hypokalemia: Likely related to lasix use 40 PO x1 04/12 and start with 20 BID after Subjective Pt continues to feel that he is improving. No SOB at rest or with ambulation around the room, but he has not felt like ambulating in the halls due to the LE swelling. LE swelling continues to improve. Tolerating PO without issue. Feels his abd swelling continues to improve. He has still not not had a bowel movement since [employer]. He took senna and MOM yesterday. He is passing gas. Pt denies fever, chest pain, abd pain, n/v, LE pain. Pertinent positives and negatives reviewed in HPI--all others negative Physical Exam 2 Vital Signs (Past 24 Hours): Last Vital Signs Temp 36.6 C 04/13/18 11:44 Pulse 89 04/13/18 11:44 Resp 20 04/13/18 11:44 BP 119/79 04/13/18 11:44 Pulse Ox 95 04/13/18 11:44 Constitutional: WD/WN, vitals as above Eyes: normal visual downing by confrontation and + anicteric sclerae Neck: normal visual inspection and trachea midline Respiratory: normal respiratory effort, lungs clear to auscultation Cardiovascular: Rate/Rhythm: regular rate; + abnormal rhythm Gastrointestinal (Abdomen): Inspection/Auscultation: + abdomen distended ( improving) Percussion/Palpation: abdomen soft; abdomen nontender Musculoskeletal: Head/Neck/Chest: normocephalic and head atraumatic Skin: no rashes, warm and dry Neurologic: awake; not confused Speech / Cognition: normal speech Psychiatric: A+Ox3, euthymic affect _ (1) Acute CHF Heart failure type: unspecified Qualified Code(s): I50.9 - Heart failure, unspecified
[2018-04-13] MEDS ORDERED: MAGNESIUM HYDROXIDE SUSP 30 ML UDC PO ONE (13:26)
[2018-04-13] MEDS: CARVEDILOL 12.5 MG TAB PO SCH (20:34)
[2018-04-14 06:38] LABS: BUN Creatinine Ratio 15.6 (10-20); Calcium 8.5 mg/dl (8.5-10.1); Est GFR (African American) 111.6; Est GFR (Non-African American) 96.3; Magnesium 2.2 mg/dl (1.8-2.4); Phosphorus 2.9 mg/dl (2.5-4.9); Potassium 3.7 mmol/L (3.5-5.1)
[2018-04-14] MEDS: APIXABAN 5 MG TABLET PO SCH ×2 (09:44→20:12)
[2018-04-14] MEDS: CARVEDILOL 12.5 MG TAB PO SCH ×2 (09:44→20:13)
[2018-04-14] MEDS: MAGNESIUM OXIDE 400 MG TAB PO SCH (09:45)
[2018-04-14] MEDS: FUROSEMIDE 40 MG in SYRINGE 0 ML IV SCH ×2 (09:45→20:12)
[2018-04-14] MEDS: SACUBITRIL-VALSARTAN 24-26 MG TAB PO SCH ×2 (09:45→20:12)
[2018-04-14] MEDS: POTASSIUM CHLORIDE 10 MEQ TABCR PO SCH ×2 (09:45→20:12)
[2018-04-14] MEDS: SENNA 8.6 MG TAB PO SCH (09:46)
[2018-04-14] MEDS: MULTIVITAMIN TAB PO SCH (09:46)
[2018-04-14] MEDS: MAGNESIUM HYDROXIDE SUSP 30 ML UDC PO SCH (09:46)
--- NOTE | 2018-04-14 11:16 | Hospitalist Progress Note ---
Date of Service April 14, 2018 Assessment & Plan (1) Acute CHF: 58 y/o M Hx AF, ETOH abuse, medical noncompliance. The pt states that he has had AF for 10 years. Had been cardioverted in the distant past for afib. He had significant scrotal edema as well as penile edema on admission. 1) acute diastolic CHF - likely owing to persistent AF Echo also shows systolic dysfunction Cardio following with recs for rate control, increased diuresis, and starting anticoagulation Strict I/O, daily weights, low Na diet, fluid restriction Eliquis, entresto, carvedilol, lasix (2) Atrial fibrillation: B herber, but did have some pauses at one point, cardiology is slowly increasing dose (3) Elevated troponin: likely supply demand mismatch, was on aspirin on admission but d/c'd in favor of eliquis as above (4) Dysuria: owing to scrotal edema - renal function is intact - PRN cath UA neg (5) Elevated bilirubin: remainder of LFTs WNL -likely hepatic venous congestion CTAP shows anasarca and moderate ascites ?? cirrhosis Monitor with fluid status changes given hx of EtOH abuse in the past (6) JAYLA (obstructive sleep apnea): No hx of sleep study Concern for this as cause for afib Feeling improved with CPAP Overnight pulse ox was neg, does not rule out JAYLA Will need formal sleep study as outpt (7) Constipation: No bowel movement since FULL TIME Ongoing MOM, connie started 04/12 (8) Hypokalemia: Likely related to lasix use 40 PO x1 04/12 and start with 20 BID after Subjective Pt continues to feel improved. No SOB at rest or with ambulation around the room, but still not ambulating in the halls. LE swelling continues to improve. Tolerating PO without issue. Feels his abd swelling continues to improve. He has still not not had a bowel movement since FULL TIME. He is passing gas. Pt denies fever, chest pain, abd pain, n/v, LE pain. Pertinent positives and negatives reviewed in HPI--all others negative Physical Exam 2 Vital Signs (Past 24 Hours): Last Vital Signs Temp 36.6 C 04/14/18 07:29 Pulse 83 04/14/18 07:29 Resp 22 04/14/18 07:29 BP 122/85 04/14/18 07:29 Pulse Ox 98 04/14/18 07:29 Constitutional: WD/WN, vitals as above Eyes: normal visual downing by confrontation and + anicteric sclerae Neck: normal visual inspection and trachea midline Respiratory: normal respiratory effort, lungs clear to auscultation Cardiovascular: Rate/Rhythm: regular rate; + abnormal rhythm Gastrointestinal (Abdomen): Inspection/Auscultation: + abdomen distended ( improving) Percussion/Palpation: abdomen soft; abdomen nontender Musculoskeletal: Head/Neck/Chest: normocephalic and head atraumatic Trace pitting LE edema b/l Skin: no rashes, warm and dry Neurologic: awake; not confused Speech / Cognition: normal speech Psychiatric: A+Ox3, euthymic affect _ (1) Acute CHF Heart failure type: unspecified Qualified Code(s): I50.9 - Heart failure, unspecified
--- NOTE | 2018-04-14 13:01 | Cardiology Progress Note ---
Date of Service April 14, 2018 Assessment & Plan (1) Cardiomyopathy: Patient stable from a cardiac standpoint. Hemodynamics and volume status improving. Carvedilol gradually titrated upward, would hold at current dose given his mild relative hypotension and currently controlled heart rate. As noted, no further pauses since he began using CPAP. (2) Acute CHF: See above. Subjective Unevtful night. Patient is feeling well currently with no chest pain, dyspnea at rest, palpitations, presyncope, or syncope. Monitor showed atrial fibrillation with controlled rate. No further pauses. Physical Exam 2 Vital Signs (Past 24 Hours): Last Vital Signs Temp 36.6 C 04/14/18 07:29 Pulse 83 04/14/18 07:29 Resp 22 04/14/18 07:29 BP 122/85 04/14/18 07:29 Pulse Ox 98 04/14/18 07:29 No distress. Generally normotensive, last month he was mildly hypotensive. Heart rate well controlled. Skin: no ecchymoses or generalized lesions. HEENT: unremarkable. Neck: Jugular venous pulse just above the clavicle, no carotid bruits. Lungs clear. Cardiac: irregular rhythm and no murmur or gallop. Abdomen benign. Extremities: no edema, pulses brisk. Neurologic Alert, nonfocal. Results & Data Laboratory Results Normal electrolytes, BUN 13, creatinine 0.83. Diagnostic Findings Monitor showed atrial fibrillation with controlled ventricular response. _ (1) Acute CHF Heart failure type: unspecified Qualified Code(s): I50.9 - Heart failure, unspecified
[2018-04-15 06:44] LABS: Creatinine Clr Calc Pharmacy 129.8 ml/min; Est GFR (African American) 111.6; Est GFR (Non-African American) 96.3
--- NOTE | 2018-04-15 07:37 | Hospitalist Progress Note ---
Date of Service April 15, 2018 Assessment & Plan (1) Acute CHF: 58 y/o M Hx AF, ETOH abuse, medical noncompliance. The pt states that he has had AF for 10 years. Had been cardioverted in the distant past for afib. He has some improvement in his scrotal edema as well as penile edema from admission. acute diastolic CHF - likely owing to persistent AF Echo also shows systolic dysfunction, significant may consider life vest for sudden prevention Cardio following with recs for rate control but has had some pauses, continued diuresis, and starting anticoagulation with eliquis low Na diet, fluid restriction Eliquis, entresto, carvedilol, lasix (2) Atrial fibrillation: B herber, for rate control (3) Elevated troponin: likely supply demand mismatch, was on aspirin on admission but cardiology is in favor of eliquis as above (4) Dysuria: owing to scrotal edema - renal function is intact - no need for cath at this time UA neg (5) Elevated bilirubin: remainder of LFTs WNL -likely hepatic venous congestion CTAP shows anasarca and moderate ascites due to his cardiac depressed function and diastolic dysfunction (6) JAYLA (obstructive sleep apnea): No hx of sleep study Concern for this as cause for afib Feeling improved with CPAP Overnight pulse ox was neg, does not rule out JAYLA Will need formal sleep study as outpt (7) Constipation: No bowel movement since [employer] Ongoing MOMconnie started 04/12 (8) Hypokalemia: Likely related to lasix use replete as needed Subjective Patient feels much improved his lower extremity edema has receded quite a bit he still has some significant scrotal swelling he is not been walking around to large extent and will attempt to ambulate today he had related to me that cardiology had discussed the possibility of a life vest that this was initially brought up due to the patient's low ejection fraction confirmed with cardiology whether this needs to be prescribed at time of discharge Review of Systems ROS: well nourished well developed. No double vision blurry vision No problems with speech or swallowing No palpitations, chest pain or pressure No Wheezing or breathing issues No abdominal pain nausea vomiting diarrhea changes in appetite or weight No burning urine urine frequency or changes in color but difficulty urination persists due to scrotal and penile swelling No focal joint pain or muscle pain No skin rashes or oral lesions No unusual bruising or bleeding No focused back pain or numbness or loss of strength No changes in memory or confusion Physical Exam 2 Vital Signs (Past 24 Hours): Last Vital Signs Temp 37.3 C 04/15/18 04:40 Pulse 84 04/15/18 04:40 Resp 22 04/15/18 04:40 BP 107/78 04/15/18 04:40 Pulse Ox 95 04/15/18 04:40 The patient appeared well nourished and normally developed. Vital signs as documented. Head exam is unremarkable. No scleral icterus or corneal arcus noted Neck is without jugular venous distension, thyromegaly, or lymphademopathy Lungs are clear to auscultation and percussion. Cardiac exam reveals Rhythm is regular(although has A. fib). First and second heart sounds normal. No murmurs, rubs or gallops. Abdominal exam reveals normal bowel sounds, no masses, no organomegaly Extremities are which with much less edema and both pedal pulses are normal. Neurologic exam is A&Ox3, no focal deficits, strength is equal bilateral Skin is warm Dry without bruises or lesions _ (1) Acute CHF Heart failure type: unspecified Qualified Code(s): I50.9 - Heart failure, unspecified
[2018-04-15] MEDS: MAGNESIUM HYDROXIDE SUSP 30 ML UDC PO SCH (08:52)
[2018-04-15] MEDS: SENNA 8.6 MG TAB PO SCH (08:52)
[2018-04-15] MEDS: APIXABAN 5 MG TABLET PO SCH ×2 (08:53→21:42)
[2018-04-15] MEDS: POTASSIUM CHLORIDE 10 MEQ TABCR PO SCH ×2 (08:53→21:42)
[2018-04-15] MEDS: SACUBITRIL-VALSARTAN 24-26 MG TAB PO SCH ×2 (08:53→21:42)
[2018-04-15] MEDS: CARVEDILOL 12.5 MG TAB PO SCH ×2 (08:53→21:42)
[2018-04-15] MEDS: MAGNESIUM OXIDE 400 MG TAB PO SCH (08:54)
[2018-04-15] MEDS: FUROSEMIDE 40 MG in SYRINGE 0 ML IV SCH ×2 (08:54→21:42)
[2018-04-15] MEDS: MULTIVITAMIN TAB PO SCH (08:54)
[2018-04-16 06:44] LABS: Hematocrit (blood only) 43.9 % (42-52); Hemoglobin 14.4 g/dL (14.0-18.0); Mean Corpuscular Hgb Conc 32.8 g/dL (32-36); Mean Corpuscular Volume 88.3 fL (80-100); Mean Platelet Volume 11.3 fL (7.4-10.4); Platelet Count 163 K/uL (130-400); RDW Coefficient of Variation 16.2 % (11.5-14.5); RDW Standard Deviation 52.3 fL (36.4-46.3); Red Blood Count 4.97 M/uL (4.7-6.1); White Blood Count 9.85 K/uL (4.8-10.8)
[2018-04-16 07:17] LABS: Albumin Level 3.1 gm/dl (3.4-5.0); Bilirubin Direct 0.9 mg/dl (0-0.2); Bilirubin,Total 2.3 mg/dl (0.1-1); Total Protein 6.6 gm/dl (6.4-8.2)
[2018-04-16] MEDS: CARVEDILOL 12.5 MG TAB PO SCH (09:23)
[2018-04-16] MEDS: APIXABAN 5 MG TABLET PO SCH (09:23)
[2018-04-16] MEDS: SACUBITRIL-VALSARTAN 24-26 MG TAB PO SCH (09:23)
[2018-04-16] MEDS: POTASSIUM CHLORIDE 10 MEQ TABCR PO SCH (09:23)
[2018-04-16] MEDS: MAGNESIUM OXIDE 400 MG TAB PO SCH (09:24)
[2018-04-16] MEDS: FUROSEMIDE 40 MG in SYRINGE 0 ML IV SCH (09:24)
[2018-04-16] MEDS: MULTIVITAMIN TAB PO SCH (09:24)
[2018-04-16] MEDS: MAGNESIUM HYDROXIDE SUSP 30 ML UDC PO SCH (09:28)
[2018-04-16] MEDS: SENNA 8.6 MG TAB PO SCH (09:28)
--- NOTE | 2018-04-16 12:15 | Cardiology Progress Note ---
Date of Service April 16, 2018 Assessment & Plan (1) Atrial fibrillation: From his history I cannot tell how long he has been in atrial fibrillation , he does have a long history of it going back at least 10 years but I cannot tell if it is permanent or paroxysmal from his description, however I suspect permanent. I also cannot tell if it has been uncontrolled for that long or not , but he is not on medications although historically he evidently was. I think he should be on rate control medications and he should be on an anticoagulant at this point, rather than aspirin. He is now on Eliquis. His rate has improved substantially and is now acceptable at rest. He did have some pauses of around 5 seconds a number of days ago, but it seemed that that was probably associated with sleep apnea although I do not believe we have proven that as yet and with diuresis they have resolved. Even with going up on the beta- herber those pauses have not recurred. I am therefore going to continue the carvedilol at this time. As an outpatient I am going to go up on the carvedilol and at some point will need to get a Holter monitor to make sure we have good rate control but I would like to wait until he is more active so that we know what is heart rate is with activity. (2) Cardiomyopathy: Based on his echocardiogram he has significant left ventricular dysfunction. It may be long-standing as he tells me that he had a cardiomyopathy in the past, although I think it is certainly worse now. This may be rate related from his atrial fibrillation or he may have some other cause of cardiomyopathy. Based on his electrocardiogram it is probably not ischemic and he does not have symptoms compatible with coronary artery disease. I do not think we need catheterization now, although we may want to do that in the future depending on how he responds to medications. I would like to continue medications for his cardiomyopathy for now, and repeat the echocardiogram in a month to see if there has been progress. Ultimately he may need an ICD and may well need an ischemic evaluation. (3) Acute on chronic systolic CHF (congestive heart failure): He presents in what he describes is recent onset of congestive heart failure, perhaps a month or 2, although it is conceivable it has been going on for longer than that and then he became aware of it more recently. Since he has not been seeing physicians I do not know that we can be more accurate in the time sequence. The cause of his heart failure is almost certainly left ventricular dysfunction, hopefully from uncontrolled heart rate which may correct. He is responding well to diuresis, his renal function is not deteriorating. I would recommend continuing with oral diuretics at least for now and we will follow him closely as an outpatient. (4) Ventricular tachycardia: He had a 13 beat run of ventricular tachycardia on the night of April 14. It was quite rapid and it is worrisome in view of his cardiomyopathy. I think he should certainly have a LifeVest, until we make a decision regarding a permanent ICD and that will be based in part on his left ventricular function and response to treatment. I have filled out the paperwork for the LifeVest. Subjective He has been feeling well, he feels much better than on admission with dramatic loss in edema. He still feels he is not quite back to normal but feels that he could manage at home. Physical Exam 2 Vital Signs (Past 24 Hours): Last Vital Signs Temp 36.5 C 04/16/18 11:44 Pulse 85 04/16/18 11:44 Resp 22 04/16/18 11:44 BP 98/65 L 04/16/18 11:44 Pulse Ox 95 04/16/18 11:44 Physical Exam: Constitutional: Alert, cooperative and in no distress. Pulmonary: Clear to auscultation bilaterally. Cardiac: Irregular rhythm with no murmur, gallop or rub. Abdomen: Soft, nontender with normal bowel sounds. Extremities: +1-2 bilateral pretibial edema. Skin: No rash, ecchymoses or petechiae. Signs of chronic venous stasis on his legs Results & Data Diagnostic Findings Telemetry: Atrial fibrillation with a controlled heart rate, no ventricular tachycardia for 24 hours. He had a 13 beat run of ventricular tachycardia overnight the night before.
--- NOTE | 2018-04-18 17:58 | Discharge Summary ---
Date of Service April 16, 2018 Admission HPI Per Admitting Provider 58 y/o M Hx AF, ETOH abuse, medical noncompliance. The pt states that he has had AF for 10 years. He has not seen an MD in this time and has been taking a baby aspirin only. Over the last few months he has developed shortness of breath and progressive edema. He has noted significant scrotal edema as well and has had some difficulty urinating as of late. He is profoundly edematous on arrival to the ER. An EKG confirmed AF while a CXR displayed cardiomegaly and vascular congestion. Inital labs are notable for a marginal troponin and an elevated bilirubin. The pt denies CP, a productive cough, nausea, vomiting, diaphoresis or fevers. PMH: Per the pt his PMH is limited to AF and excessive alcohol use Surgical: Denies Social: Quit smoking 10 years ago States he normally drinks several glasses of wine daily. Over the last 2 months he has only had one glass daily due to his condition. He is currently unemployed Family: Father owing to a CVA age 71 Mother due to an MVA Principal Diagnosis acute diastolic/systoic heart failure Discharge Exam Constitutional well developed and average body habitus Eyes no conjunctival abnormality and no scleral abnormality Neck normal visual inspection and trachea midline Respiratory normal respiratory effort; no respiratory distress Auscultation: lungs clear to auscultation bilaterally Cardiovascular Rate/Rhythm: + abnormal rhythm Extremities: + edema Gastrointestinal (Abdomen) normal bowel sounds, soft, nontender, no hepatosplenomegaly Musculoskeletal no cyanosis or clubbing, extremities motor strength 5/5 Discharge Data Allergies Allergy/AdvReac Type Severity Reaction Status Date / Time No Known Allergies Allergy Unverified 04/09/18 08:10 Consultations 04/09/18 10:38 ED Decision to Admit Stat 04/09/18 12:38 Consult Cardiology Routine Ordered Studies 04/09/18 08:10 CT abd pelvis wo con Stat Hospital Course (1) Acute CHF: 58 y/o M Hx AF, ETOH abuse, medical noncompliance. The pt states that he has had AF for 10 years. Had been cardioverted in the distant past for afib. He has some improvement in his scrotal edema as well as penile edema from admission. acute diastolic CHF - likely owing to persistent AF Echo also shows systolic dysfunction, significant may consider life vest for sudden prevention Cardio following with recs for rate control but has had some pauses, continued diuresis, and starting anticoagulation with eliquis low Na diet, fluid restriction Eliquis, entresto, carvedilol, lasix (2) Atrial fibrillation: B herber, for rate control (3) Elevated troponin: likely supply demand mismatch, was on aspirin on admission but cardiology is in favor of eliquis as above (4) Dysuria: owing to scrotal edema - renal function is intact - no need for cath at this time UA neg (5) Elevated bilirubin: remainder of LFTs WNL -likely hepatic venous congestion CTAP shows anasarca and moderate ascites due to his cardiac depressed function and diastolic dysfunction (6) JAYLA (obstructive sleep apnea): No hx of sleep study Concern for this as cause for afib Feeling improved with CPAP Overnight pulse ox was neg, does not rule out JAYLA Will need formal sleep study as outpt (7) Constipation: 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 movement 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 Ongoing MOMconnie started 04/12 (8) Hypokalemia: Likely related to lasix use replete as needed Total Time Total Time Spent Total Time Spent (In Minutes): greater than 30 minutes were required to prepare discharge Discharge Plan Discharge Items Patient Disposition: Home - Home Health Services Reason For Visit: ANASARCA, AF, DYSURIA, CHF Discharge Diagnosis: acute systolic heart failure Discharge Goals: Decrease discomfort and Diagnostic testing Activity: As commented below Activity Comment: gradually increase activity Non-emergency contact: Primary Care Provider and Farm Reporter Call non-emergency contact if: you have any medication questions Follow-up/Referrals: Catracho Ortez MD [Physician] - 04/22/18 11:30 am (Please, follow up at [facility] Cardiology Office with Dr. Ortez on FridayApril 22 at 11:30 am. You will want to arrive a little early because you are a new patient. *This office is located in [address] of [facility] - big building next to this hospital. This is in the same building as your appointment with Nichol Cedeño. If you need to change this a ppointment, call the office at [phone].) Michael Weeks MD [Primary Care Provider] - 04/22/18 9:00 am (Please, follow up at Dr. Michael Weeks's office with his mri assistant, Nichol Cedeño PA-C on FridayApril 22 at 9:00 am. *Dr. Weeks will be your new primary care provider and will see you in June, as planned. Unfortunately, he had no openings in his schedule next week, but his mri assistant Nichol will see you. This office is located in [address] [facility] - big building next to this hospital. This office is in the same building as your appointment with Dr. Ortez (cardiology). If you need to change this appointment, call the office at [phone].) Diet: Low Sodium (2gm) Addtl Provider Instructions: Call 911 and go to the Emergency Room if: * You have tightness or pain in your chest that does not go away with rest or Nitroglycerin * You are very short of breath even with rest Call your doctor if any of the following symptoms or problems start or get worse: * Shortness of breath or difficulty breathing * Wake up at night short of breath * Chest pain * Cough * Swelling of your hands, fee, or legs * More fatigued or tired with your normal activity * Palpitations - sudden fast heart beats WEIGHT * Weigh yourself every morning after using the bathroom. * Use the same scale. * Wear the same amount of clothing. * Write your weight down on your chart. * Call your doctor if you gain more than 2-3 pounds in 1-2 days. MEDICATIONS * Use this discharge instruction sheet for instructions. * Take your medications at the time your doctor ordered. * Do not skip a dose of your medicines. * If you miss a dose of medicine, take as soon as possible, but DO NOT DOUBLE A DOSE. * Read your medicine information when you get home. * Know all of the side effects of your medicine. * Call your doctor's office if you have any side effects. * Be sure all of your doctors know what medicine and herbs you take (including cold, flu, and herbal medicine). * Pain Medicine: If you do not get relief from your pain, please call your doctor for help. Take the following with you to your follow-up doctor appointments: * Weight Chart * Medication List * List of questions Do not drink excessive alcohol, beer or wine. Plan to follow up with Janel Servin/Dr. Ortez (Heart Failure Program) within 1 week from discharge. [phone] Prescriptions: New carvedilol 12.5 mg Tablet 12.5 mg PO BID Qty: 60 RF: 4 potassium chloride [Klor-Con M10] 10 mEq Tablet,Er Particles/Crystals 20 meq PO BID Qty: 60 RF: 4 apixaban [Eliquis] 5 mg Tablet 5 mg PO BID Qty: 30 RF: 4 sacubitril-valsartan [Entresto] 24-26 mg Tablet 1 tab PO BID Qty: 60 RF: 4 furosemide 40 mg tablet 40 mg PO BID Qty: 60 RF: 4 Continue magnesium 250 mg Tablet 500 mg PO QAM RF: 0 cholecalciferol (vitamin D3) [Vitamin D3] 5,000 unit Tablet 5,000 unit PO QAM RF: 0 omega [id number]-fish oil [Fish Oil] 1,000 mg (120 mg-180 mg) Capsule 1 cap PO QAM RF: 0 Discontinued aspirin 81 mg Tablet,Chewable 81 mg PO QAM RF: 0 multivitamin [Multiple Vitamins] Tablet 1 tab PO QAM RF: 0 ascorbic acid (vitamin C) [Vitamin C] 250 mg Tablet 250 mg PO QAM RF: 0 vitamin B complex Tablet 1 tab PO QAM RF: 0 Stand-Alone Forms: [facility] Discharge Orders: Discharge Order (Routine); Ordered 04/16/18 Ordered By: Edi James Admission Data Admit Date/Time: 04/09/18 11:16 Attending Provider: Edi James Admit Provider: Walker Acevedo Primary Care Provider: Michael Weeks Other Providers: Santosh Wilson ; Obinna Amos ; Diana Morris Service: Telemetry Other Interventions: Discharge Summary Assessment (RN) Last Done: 04/16/18 17:19 DC Date/Time DO NOT enter until pt leaves facility: 04/16/18 17:47
== END 2018-04-16 17:47 | disposition home health service (06) | DRG 292 ==
LOC: ED 07:22 → 2E 07:22 → SUATTDRO 11:16 → 2E 12:20 → SUATTDRO 12:27